=== PATIENT | male | born 1985 | race Caucasian/White ===

== ENCOUNTER 2017-10-21 15:17 | Emergency (ER) | payer SELFPAY ==
[2017-10-21 15:18] VITALS: BP 132/64; PULSE 98; RESP 18; TEMP 36.8; O2SAT 94; BMI 69.9
--- NOTE | 2017-10-21 17:11 | ED.VISSUMM ---
- ER Visit Summary Date of Service: 10/21/17 Chief Complaint: Respiratory illness for 2 weeks with productive green sputum History of Present Illness: The patient is a 32 M presents because of respiratory symptoms for 2 weeks with productive green sputum. He had asthma as a child. He is a non-smoker. He denies headache, rhinorrhea or postnasal drainage. He denies ear pain. He does complain of throat pain with coughing. His voice is hoarse. He denies any dyspnea on exertion or wheezing. He has no GI symptoms. Please read written note for complete detail. Physical Examination: No signs remarkable for an elevated blood pressure 132/64. His vital signs are otherwise within normal limits. He is not febrile nor is he hypoxic. Ears are normal. Nares patent with no discharge. Posterior pharynx erythema x-ray. Trachea midline with no stridor. Lungs are clear to auscultation with good movement of air. Heart is regular without murmur, gallop or rub. Test Results: None are indicated Emergency Department Course and Treatment: Was informed since he has a productive cough and has been ill for 2 weeks and be placed on antibiotic. He was given a prescription card to reduce his cost since he is a self-pay. Treatment Plan: Doxycycline 100 mg twice daily for 7 days Disposition: Discharged home with appropriate home-going instructions Impression: Purulent tracheitis/bronchitis This note was generated with [employer] dictation software. It may contain incorrect words, spelling, and punctuation that were not noted in review of the chart prior to signing ED Disposition - Plan for ED Patient: Disposition: Home or Assisted Living Chief Complaint: Cough Instructions: ED Upper Resp Infec Abx Tx Prescriptions: Doxycycline [Vibramycin] 100 mg PO BID #14 cap Referrals: Care Physician,No Primary [Primary Care Provider] - Joann Squires [NON-STAFF] - 3-5 Days if not improving
--- NOTE | 2017-10-21 17:15 | ED.DCSUM_ITS ---
- ER Visit Summary Date of Service: 10/21/17 Chief Complaint: Respiratory illness for 2 weeks with productive green sputum History of Present Illness: The patient is a 32 M presents because of respiratory symptoms for 2 weeks with productive green sputum. He had asthma as a child. He is a non-smoker. He denies headache, rhinorrhea or postnasal drainage. He denies ear pain. He does complain of throat pain with coughing. His voice is hoarse. He denies any dyspnea on exertion or wheezing. He has no GI symptoms. Please read written note for complete detail. Physical Examination: No signs remarkable for an elevated blood pressure 132/ 64. His vital signs are otherwise within normal limits. He is not febrile nor is he hypoxic. Ears are normal. Nares patent with no discharge. Posterior pharynx erythema x-ray. Trachea midline with no stridor. Lungs are clear to auscultation with good movement of air. Heart is regular without murmur, gallop or rub. Test Results: None are indicated Emergency Department Course and Treatment: Was informed since he has a productive cough and has been ill for 2 weeks and be placed on antibiotic. He was given a prescription card to reduce his cost since he is a self-pay. Treatment Plan: Doxycycline 100 mg twice daily for 7 days Disposition: Discharged home with appropriate home-going instructions Impression: Purulent tracheitis/bronchitis This note was generated with [employer] dictation software. It may contain incorrect words, spelling, and punctuation that were not noted in review of the chart prior to signing ED Disposition - Plan for ED Patient: Disposition: Home or Assisted Living Chief Complaint: Cough Instructions: ED Upper Resp Infec Abx Tx Prescriptions: Doxycycline [Vibramycin] 100 mg PO BID #14 cap Referrals: Care Physician,No Primary [Primary Care Provider] - Joann Squires [NON-STAFF] - 3-5 Days if not improving
--- NOTE | 2017-10-21 17:17 | ED.VISSUMM ---
- ER Visit Summary Date of Service: 10/21/17 Chief Complaint: [] History of Present Illness: The patient is a 32 M [] Physical Examination: [] Test Results: [] Emergency Department Course and Treatment: [] Treatment Plan: [] Disposition: [] Impression: [] This note was generated with [employer] dictation software. It may contain incorrect words, spelling, and punctuation that were not noted in review of the chart prior to signing ED Disposition - Plan for ED Patient: Disposition: Home or Assisted Living Chief Complaint: Cough Instructions: ED Upper Resp Infec Abx Tx Prescriptions: Doxycycline [Vibramycin] 100 mg PO BID #14 cap Referrals: Joann Squires [NON-STAFF] - 3-5 Days if not improving Care Physician,No Primary [Primary Care Provider] -
== END 2017-10-21 17:28 | disposition home or self-care (01) ==
PROVIDERS: Emergency Provider Emergency Medicine
DX: J40 Bronchitis, not specified as acute or chronic (principal); E66.9 Obesity, unspecified
CPT/HCPCS: 99282

== ENCOUNTER 2017-12-20 05:41 | Emergency (ER) | payer OTHER, SELFPAY ==
[2017-12-20 05:42] VITALS: BP 147/82; PULSE 86; RESP 18; TEMP 36.6; O2SAT 95; BMI 68.8
[2017-12-20 05:45] VITALS: O2SAT 96
--- NOTE | 2017-12-20 05:59 | ED.VISSUMM ---
- ER Visit Summary Date of Service: 12/20/17 Chief Complaint: Productive cough and cold symptoms History of Present Illness: The patient is a 32 M who presents with 1 week of gradually worsening cough and cold symptoms. Patient states these are the same symptoms he had in October when he required antibiotics to get better. He has been having a cough productive of green sputum. He has associated mild headache, nasal congestion, myalgias, and chest heaviness from the coughing. He denies fever, abdominal pain, nausea or vomiting, diarrhea or urinary symptoms. Patient does have history of asthma but does not currently have a rescue inhaler and has been using his girlfriends. No other medical problems. Physical Examination: Vital signs: afebrile, hemodynamically stable, no hypoxia on room air General: well nourished, well developed, in no distress Skin: warm, dry, no rash, no pallor HEENT: normocephalic and atraumatic; PERRL, EOMI, moist mucous membranes, no posterior oropharyngeal erythema, no tonsillar swelling or exudate, neck is supple with no lymphadenopathy or meningismus TMs show bilateral cerumen impaction but no tenderness to palpation of the mastoids or with movement of the external ear, voice is mildly hoarse, patient sounds congested, mild sinus tenderness to palpation Cardiovascular: regular rate and rhythm without murmurs, no peripheral edema, 2+ pulses all distal extremities Respiratory: No increased work of breathing, lungs are clear to auscultation bilaterally, no rales, rhonchi or wheezing Abdominal: Abdomen is soft, nontender with normoactive bowel sounds, no guarding or rebound, no masses MSK: Moves all extremities, no deformities, normal strength Neuro: Awake and alert, oriented ?4. No facial droop, sensation and motor function intact and symmetric Test Results: [] Emergency Department Course and Treatment: We discussed that patient's symptoms may be viral, but given his history of asthma and prior similar symptoms that lasted greater than 2 weeks before improving with antibiotics, patient will be given a wait and see prescription. He was on doxycycline less than 2 months ago, thus a different antibiotic was chosen in case there is any element of incomplete treatment with the doxycycline. Patient has a penicillin allergy. To cover rhinosinusitis and bacterial bronchitis, patient was prescribed Levaquin. He was also given a prescription for albuterol inhaler as he does not have one but does have asthma requiring rescue inhaler use. Patient had no evidence of wheezing or acute respiratory distress on exam today. He was urged to establish care with a primary care doctor. Patient agreed with this plan and was given the wait and see antibiotic prescription. Treatment Plan: [] Disposition: Discharge home Impression: Acute rhinosinusitis, acute bronchitis This note was generated with [employer] dictation software. It may contain incorrect words, spelling, and punctuation that were not noted in review of the chart prior to signing ED Disposition - Plan for ED Patient: Disposition: Home or Assisted Living Chief Complaint: Cold Sx Instructions: ED Upper Resp Infec Abx Tx, ED Bronchitis Asthmatic Prescriptions: Albuterol IH (ProAir) [Proair Hfa] 2 puff INHALATION Q4H PRN PRN #1 inhaler PRN Reason: Wheezing Levofloxacin [Levaquin] 750 mg PO DAILY #5 tab Referrals: Katrin Deutsch MD [STAFF PHYSICIAN] - 3-5 Days if not improving Care Physician,No Primary [Primary Care Provider] - Additional Instructions: As we discussed, please do not fill the antibiotic unless you are not having any improvement in 2-3 days. Continue [id number] medications for symptom relief. Please follow-up with a primary care physician to establish care for management of your asthma and other medical needs. The worsening of your condition or any new concerning symptoms, please return to the emergency department immediately for another evaluation.
--- NOTE | 2017-12-20 06:00 | ED.DEP ---
ED Disposition - Plan for ED Patient: Disposition: Home or Assisted Living Chief Complaint: Cold Sx Instructions: ED Bronchitis Asthmatic, ED Upper Resp Infec Abx Tx Prescriptions: Albuterol IH (ProAir) [Proair Hfa] 2 puff INHALATION Q4H PRN PRN #1 inhaler PRN Reason: Wheezing Levofloxacin [Levaquin] 750 mg PO DAILY #5 tab Referrals: Care Physician,No Primary [Primary Care Provider] - Katrin Deutsch MD [STAFF PHYSICIAN] - 3-5 Days if not improving Additional Instructions: As we discussed, please do not fill the antibiotic unless you are not having any improvement in 2-3 days. Continue [id number] medications for symptom relief. Please follow-up with a primary care physician to establish care for management of your asthma and other medical needs. The worsening of your condition or any new concerning symptoms, please return to the emergency department immediately for another evaluation.
[2017-12-20 06:16] VITALS: PULSE 66; RESP 16; O2SAT 98
== END 2017-12-20 06:16 | disposition home or self-care (01) ==
PROVIDERS: Emergency Provider Emergency Medicine
DX: J01.90 Acute sinusitis, unspecified (principal); J20.9 Acute bronchitis, unspecified; J45.909 Unspecified asthma, uncomplicated
CPT/HCPCS: 99282

== ENCOUNTER 2019-09-06 13:49 | Inpatient (IN) | payer OTHER, SELFPAY ==
[2019-09-06 13:49] VITALS: BP 205/110; PULSE 102; RESP 16; TEMP 36.1; O2SAT 99; BMI 72.5
--- NOTE | 2019-09-06 16:51 | RAD_ITS ---
STUDY: X-RAY CHEST REASON FOR EXAM: Male, 34 years old. BILATERAL LEG SWELLING, NO CHEST COMPLAINTS TECHNIQUE: Single AP portable view of the chest. COMPARISON: None. FINDINGS: The lungs are clear and expanded. There is no demonstrated pleural abnormality. Normal size heart. Normal mediastinum and dinh. Normal visualized pulmonary arteries. Normal visualized aortic arch and descending thoracic aorta. Normal visualized thoracic spine. Normal visualized ribs, clavicles, and shoulders. There is no demonstrated abnormality of the visualized soft tissue structures of the upper abdomen. RAD/Chest 1 View (Portable) IMPRESSION: Normal x-ray examination of the chest. Electronically Signed: Gasper Wu MD at 17:16 EST , Service support ,
--- NOTE | 2019-09-06 16:59 | ED.VIS.GEN ---
History of Present Illness Chief Complaint: Cellulitis Informant: Patient Onset: Weeks Context: Gradual Onset Timing: Continuous Narrative: Patient is a 34-year-old male with history of morbid obesity and asthma presenting with worsening redness and wounds of his right lower extremity. Patient states he had worsening swelling of both lower extremities for the past few weeks. He developed wounds and redness on his right lower leg that have been worsening over the past week or 2. He denies associated fever or chills. The wounds are draining. Patient was worried that he could get gangrene so he came to the emergency room. Patient denies any history of cellulitis. He states at one point he did use mupirocin for a wound on his left leg but that has resolved. Past Medical History - Allergies and Home Meds Allergies/Adverse Reactions: Allergies Penicillins Allergy (Verified 12/20/17 05:42) Hives Past Medical History: - - Asthma Surgical History: noncontributory Lives: Spouse/ Significant Other Smoking Status: Never smoker - Family History Maternal Family History: Reports: Cancer, Diabetes, Hypertension, Stroke, - - Leukemia Paternal Family History: Reports: Cancer, Diabetes, Hypertension, Stroke Review of Systems General: Denies: Chills, Fever, Sweats Eyes: Denies: Visual changes - bilaterally, Diplopia ENT: Denies: Rhinorrhea, Sore throat Cardiovascular: Denies: Chest pain, Palpitations Respiratory: Denies: Dyspnea, Cough, Dyspnea on exertion Gastrointestinal: Denies: Abdominal pain, Nausea, Vomiting, Diarrhea, Melena, Hematochezia Genitourinary: Denies: Dysuria, Hematuria, Frequency Musculoskeletal: Reports: Swelling - Bilateral lower extremities. Denies: Back pain, Extremity Pain Skin: Reports: Rash - Right lower extremity, Wounds - Right lower leg Neurological: Denies: Headache, Weakness, Numbness Physical Exam Vital Signs/Narrative: Vital Signs Temp Pulse Resp BP Pulse Ox 09/06/19 13:49 97 F L 102 H 16 205/110 H 99 Inital Vital Signs reviewed: Yes General: Well nourished, Well developed, Obese, No Acute Distress Head: Normocephalic, Atraumatic Eyes: Perrl, EOMI ENT: Moist mucous membranes, No rhinorrhea Neck: Supple, Nontender Cardiovascular: Regular rate, Regular rhythm, No murmurs Respiratory: No distress, CTA bilaterally, Chest nontender Abdomen: Soft, Nontender, Nondistended, Normal bowel sounds. Negative for: Tender, Guarding : - - Normal external exam Extremities: Tenderness, Edema - Patient has significant edema of his bilateral lower extremities with chronic changes likely from venous stasis. He has warmth and erythema diffusely of the right lower extremity extending from his upper thigh down to his feet. There are multiple draining ulcerated wounds of their his calf. The drainage is clear/yellow. There is no associated crepitus. Skin: Normal color, No rash, Rash - See above. Patient also has induration erythema of his pannus, patient seems to think this is chronic Neurological: Alert, Oriented x3, Cranial nerves II-XII grossly intact, Normal Strength, Normal Sensation Psychological: Normal affect, Normal Mood Diagnostic/Tx/Re-eval Clinical Impression(s) from Imaging Studies Chest X-Ray 09/06/19 16:51 IMPRESSION: Normal x-ray examination of the chest. Electronically Signed: Gasper Wu MD at 17:16 EST , Service support , Venous Duplex 09/06/19 17:22 IMPRESSION: Limited visualization of the calf veins due to obesity but no definitive evidence for deep venous thrombosis Electronically Signed: Emory Dooley MD at 18:05 EST , Service support , Laboratory Data 09/06/19 09/06/19 09/06/19 16:51 16:51 16:51 WBC 8.9 RBC 5.53 Hgb 13.2 Hct 46.6 MCV 84.3 MCH 23.9 L MCHC 28.3 L RDW Std Deviation 47.6 H RDW Coeff of Belen 15.6 H Plt Count 249 MPV 9.7 Immature Gran % (Auto) 2.000 H Neut % (Auto) 66.5 Lymph % (Auto) 20.7 Dane % (Auto) 8.1 Eos % (Auto) 2.0 Baso % (Auto) 0.7 Absolute Neuts (auto) 5.9 Absolute Lymphs (auto) 1.85 Nucleated RBC % 0 PT 13.5 INR 1.1 APTT 27.3 Sodium Potassium Chloride Carbon Dioxide Anion Gap BUN Creatinine Estim Creat Clear Calc Est GFR (MDRD) Af Amer Est GFR (MDRD) Non-Af BUN/Creatinine Ratio Glucose Lactic Acid 0.9 Calcium Total Bilirubin AST ALT Alkaline Phosphatase Total Protein Albumin Globulin Albumin/Globulin Ratio Urine Color Urine Clarity Urine pH Ur Specific [place] Urine Protein Urine Glucose (UA) Urine Ketones Urine Occult Blood Urine Nitrite Urine Bilirubin Urine Urobilinogen Ur Leukocyte Esterase Urine RBC Urine WBC Ur Squamous Epith Cells Urine Bacteria Urine Mucus 09/06/19 09/06/19 16:51 18:50 WBC RBC Hgb Hct MCV MCH MCHC RDW Std Deviation RDW Coeff of Belen Plt Count MPV Immature Gran % (Auto) Neut % (Auto) Lymph % (Auto) Dane % (Auto) Eos % (Auto) Baso % (Auto) Absolute Neuts (auto) Absolute Lymphs (auto) Nucleated RBC % PT INR APTT Sodium 141 Potassium 3.9 Chloride 104 Carbon Dioxide 37.0 H Anion Gap 0 L BUN 12 Creatinine 0.86 Estim Creat Clear Calc 139.36 Est GFR (MDRD) Af Amer 132 Est GFR (MDRD) Non-Af 109 BUN/Creatinine Ratio 13.9 Glucose 87 Lactic Acid Calcium 8.1 L Total Bilirubin 0.40 AST 40 H ALT 60 Alkaline Phosphatase 79 Total Protein 8.0 Albumin 3.1 L Globulin 4.9 H Albumin/Globulin Ratio 0.6 L Urine Color Yellow Urine Clarity Sl. Cloudy Urine pH 7.0 Ur Specific [place] 1.010 Urine Protein 15 H Urine Glucose (UA) Normal Urine Ketones Negative Urine Occult Blood Negative Urine Nitrite Negative Urine Bilirubin Negative Urine Urobilinogen Normal Ur Leukocyte Esterase Negative Urine RBC 0 SEEN Urine WBC 0-5 SEEN Ur Squamous Epith Cells 0-5 SEEN Urine Bacteria 0 SEEN Urine Mucus 0 SEEN - Medical Decision Making Patient is evaluated for worsening redness and swelling of his lower extremities, right worse than left. Patient is exam is concerning for significant cellulitis of the right lower extremity as well as bilateral lymphedema. Patient also has open wounds/ulcerations on his left lower leg. Patient is hemodynamically stable in the emergency room. Sepsis work-up is largely negative. He has a normal white blood cell count and normal lactate. Patient will be admitted for IV antibiotics and is given first dose of Ancef and Vanco in the emergency room. He is stable for the general medical floor at time of disposition. He is agreeable with this plan. Patient does not have associated crepitus and I do not suspect necrotizing fasciitis. I did obtain lower extremity duplex because of his edema which was technically difficult secondary to his large body habitus but did not show any obvious thrombosis. Discussed with hospitalist, Dr. Dimas, who is agreeable with this plan. ED Disposition - Plan for ED Patient: Disposition: Acute [facility] Diagnosis: Cellulitis
[2019-09-06 17:21] LABS: Absolute Lymphocyte Count 1.85 X10^3/uL (0.83-4.51); Absolute Neutrophil Count 5.9 X10^3/uL (2.0-7.7); Basophil# 0.06 X10^3/uL; Basophil% 0.7 % (0-1); Eosinophil# 0.18 X10^3/uL; Hematocrit 46.6 % (40-54); Hemoglobin 13.2 g/dL (13.0-16.5); Lymphocyte # 1.85 X10^3/ul (4.0); Lymphocyte % 20.7 % (19-41); Mean Corp Hgb Conc 28.3 g/dL (32-36); Mean Corpuscular Hgb 23.9 pg (27.0-32.0); Mean Corpuscular Volume 84.3 fL (80-94); Mean Platelet Vol. 9.7 fl (6.2-12.0); Monocyte# 0.72 X10^3/uL; Monocyte% 8.1 % (0-10); NRBC Flagged by Analyzer 0 % (0-5); Neutrophil # 5.94 X10^3/uL (2.7-7.7); Neutrophil % 66.5 % (47-70); Platelet Count 249 K/mm3 (150-450); RBC Distribution Width CV 15.6 % (11.6-14.6); RBC Distribution Width SD 47.6 fl (35.1-43.9); Red Blood Count 5.53 M/mm3 (4.6-6.2); White Blood Count 8.9 K/mm3 (4.4-11.0)
--- NOTE | 2019-09-06 17:22 | US_ITS ---
STUDY: VENOUS DOPPLER ULTRASOUND - BILATERAL LOWER EXTREMITIES REASON FOR EXAM: Male, 34 years old. EDEMA WET GANGRENE TECHNIQUE: Ultrasound evaluation of the deep vein system to include rodriguez-scale imaging and compression was performed. Rodriguez-scale imaging and Doppler sonographic evaluation, including duplex spectral analysis and qualitative color flow sonography, was performed. COMPARISON: None. FINDINGS: Limited visualization of the calf veins due to patient obesity. RIGHT LEG Common Femoral Vein: Normal compression, spontaneity and augmentation. Normal color Doppler. Common Femoral Vein/Greater Saphenous Junction: Normal compression, spontaneity and augmentation. Normal color Doppler. Deep Femoral Vein: Normal compression, spontaneity and augmentation. Normal color Doppler. Femoral Proximal: Normal compression, spontaneity and augmentation. Normal color Doppler. Femoral Middle: Normal compression, spontaneity and augmentation. Normal color Doppler. Femoral Distal: Normal compression, spontaneity and augmentation. Normal color Doppler. Popliteal Vein: Normal compression, spontaneity and augmentation. Normal color Doppler. Posterior Tibial Vein: Normal compression, spontaneity and augmentation. Normal color Doppler. Peroneal Vein: Normal compression, spontaneity and augmentation. Normal color Doppler. LEFT LEG Common Femoral Vein: Normal compression, spontaneity and augmentation. Normal color Doppler. Common Femoral Vein/Greater Saphenous Junction: Normal compression, spontaneity and augmentation. Normal color Doppler. Deep Femoral Vein: Normal compression, spontaneity and augmentation. Normal color Doppler. Femoral Proximal: Normal compression, spontaneity and augmentation. Normal color Doppler. Femoral Middle: Normal compression, spontaneity and augmentation. Normal color Doppler. Femoral Distal: Normal compression, spontaneity and augmentation. Normal color Doppler. Popliteal Vein: Normal compression, spontaneity and augmentation. Normal color Doppler. Posterior Tibial Vein: Normal compression, spontaneity and augmentation. Normal color Doppler. Peroneal Vein: Normal compression, spontaneity and augmentation. Normal color Doppler. US/Venous Duplex Imag/Blaise Extrem IMPRESSION: Limited visualization of the calf veins due to obesity but no definitive evidence for deep venous thrombosis Electronically Signed: Emory Dooley MD at 18:05 EST , Service support ,
[2019-09-06 17:24] VITALS: BMI 72.6
[2019-09-06 17:24] LABS: International Normalized Ratio 1.1; Prothrombin Time (Protime)PT. 13.5 SECONDS (11.7-14.9)
[2019-09-06 17:25] LABS: Partial Thromboplast Time 27.3 Seconds (24.1-36.2)
[2019-09-06 17:31] VITALS: PULSE 85; RESP 18; O2SAT 93
[2019-09-06] MEDS: 0.9% Normal Saline 1,000 ML 999 ML IV (17:34)
[2019-09-06 17:36] LABS: Lactic Acid 0.9 mmol/L (0.4-1.9)
[2019-09-06 17:59] LABS: ALB/GLOB Ratio 0.6 RATIO (0.9-2.4); AST(SGOT) 40 U/L (15-37); Alanine Aminotransfer ALT/SGPT 60 U/L (16-61); Albumin, Serum 3.1 g/dL (3.2-5.0); Alkaline Phosphatase 79 U/L (45-117); Anion Gap 0 (5-15); BUN 12 mg/dL (7-18); BUN/Creat Ratio 13.9 RATIO (10-20); Calcium,Total 8.1 mg/dL (8.5-10.1); Chloride 104 mmol/L (98-107); Creatinine, Serum 0.86 mg/dL (0.70-1.30); EST Glomerular Filtration Rate 109 mL/min (>60); Est Glom Filt Rate - Afr Amer 132 mL/min (>60); Estimated Creatinine Clearance 139.36 ml/min; Globulin 4.9 g/dL (2.2-4.2); Glucose 87 mg/dL (74-106); Potassium 3.9 mmol/L (3.5-5.1); Sodium Level 141 mmol/L (136-145)
[2019-09-06 18:54] LABS: Bacteria 0 SEEN /hpf (None Seen); Mucous, Urine 0 SEEN /hpf (<or=2+); Red Blood Cells-Urine 0 SEEN /hpf (0-5)
[2019-09-06 18:55] LABS: Color, Urine Yellow (Yellow); Glucose, Dipstick Normal (Normal); Ketone-Dipstick Negative (Negative); Leukocyte Esterase-Dipstick Negative /ul (Negative); Nitrite-Dipstick Negative (Negative); Occult Blood-Urine Negative /ul (Negative); Protein-Dipstick 15 mg/dl (Negative); Urine Bilirubin Dipstick Negative (Negative); Urine Clarity Sl. Cloudy (Clear); Urine Urobilinogen Normal (Normal)
[2019-09-06 19:06] LABS: Squamous Epithelial Cells - UA 0-5 SEEN /hpf (0-5); White Blood Cells 0-5 SEEN /hpf (0-5)
--- NOTE | 2019-09-06 19:47 | PCM.HP.STD ---
Problem List (1) Cellulitis Status: Acute History of Present Illness Date of Admission: 09/06/19 Chief Complaint: redness of right leg The patient is a 34 year old M with a significant history of morbid obesity who presented to emergency department with redness of his right leg. His symptoms started about a month ago with swelling of both legs. However he noticed about 2 weeks ago his right leg developed ulcers and it began to drain. He reports tenderness around the ulcers of his right leg. His left leg has stayed stable whiles his right leg continues to swell. He denies any fever or chills. At the emergency department ultrasound of his legs was unremarkable. Past Medical History Medical History: Medical History (Last Updated 09/06/19 @ 20:37 by Wing Erickson MD) Morbid obesity due to excess calories E66.01 Allergies Penicillins Allergy (Verified 12/20/17 05:42) Hives Home Medications: Ambulatory Orders Medication Instructions Recorded NK 09/06/19 Surgical History: no surgical history Lives: Spouse/ Significant Other Smoking Status: Never smoker Tobacco Use: Non-smoker, Secondhand - *Family History Maternal History Items: Cancer, Diabetes, Hypertension, Stroke, - - Leukemia Paternal History Items: Cancer, Diabetes, Hypertension, Stroke Review of Systems Constitutional: Denies: Chills, Fever, Weight Change HEENT: Denies: Head Aches, Sinus Congestion, Sinus Drainage Cardiovascular: Reports: Edema - Reports bilateral lower legs with right leg worse than left leg.. Denies: Chest Pain, Palpitations Respiratory: Denies: Cough, Shortness of breath at rest, Sputum production Gastrointestinal: Denies: Abdominal Pain, Nausea, Vomiting Genitourinary: Denies: Dysuria Musculoskeletal: Denies: Joint Pain, Joint Tenderness Skin: Reports: Wounds - Ulcerations of right leg, - - Erythema of right leg. Denies: Rash Neurological: Denies: Numbness, Tingling, Focal weakness Psychiatric: Denies: Anxiety, Depression, Homicidal Ideations, Suicidal Ideations Hematologic/ Lymphatic: Denies: Easy Bruising, Easy Bleeding VTE Information - Inpt Only VTE Present on Admission: No VTE Mechan Device Prophylaxis: None VTE Pharm Prophylaxis ordered?: Yes Patient Problems: Active and Suspected Problems (Last Updated 09/06/19 @ 20:37 by Wing Erickson MD) Cellulitis (Acute) - Physical Exam Vitals/I&O's: Vital Signs Temp Pulse Resp BP Pulse Ox 97 F L 85 18 205/110 H 93 09/06/19 13:49 09/06/19 17:31 09/06/19 17:31 09/06/19 13:49 09/06/19 17:31 Oxygen Delivery Method Room Air Weight: 249.476 kg Body Mass Index (BMI) 72.5 General: Alert, Oriented x3, Cooperative, - - Morbidly obese HEENT: Atraumatic, EOMI, Normocephalic Neck: Supple, Trachea Midline Lungs: Clear to auscultation, Normal air movement, No rhonchi, No wheeze, No rales, Diminished Cardiovascular: Regular rate, Normal S1, Normal S2, No murmurs Abdomen: Bowel Sounds Present, Soft, Non Tender Extremities: Capillary Refill Less than 3 Seconds, Edema - Right leg Skin: No rashes, No breakdown, - - Ulceration of right leg; tenderness around ulcer; and erythema; Musculoskeletal: Tenderness - Ulcers of right leg Neurological: Cranial nerves II-XII grossly intact Psych/Mental Status: Normal Affect, Appropriate Laboratory Results 09/06/19 16:51: Lactic Acid 0.9 09/06/19 16:51: WBC 8.9, RBC 5.53, Hgb 13.2, Hct 46.6, MCV 84.3, MCH 23.9 L, MCHC 28.3 L, RDW Std Deviation 47.6 H, RDW Coeff of [place] 15.6 H, Plt Count 249, MPV 9.7, Immature Gran % (Auto) 2.000 H, Neut % (Auto) 66.5, Lymph % (Auto) 20.7, [place] % (Auto) 8.1, Eos % (Auto) 2.0, Baso % (Auto) 0.7, Absolute Neuts (auto) 5.9, Absolute Lymphs (auto) 1.85, Nucleated RBC % 0 09/06/19 16:51: PT 13.5, INR 1.1, APTT 27.3 09/06/19 16:51: Sodium 141, Potassium 3.9, Chloride 104, Carbon Dioxide 37.0 H, Anion Gap 0 L, BUN 12, Creatinine 0.86, Estim Creat Clear Calc 139.36, Est GFR (MDRD) Af Amer 132, Est GFR (MDRD) Non-Af 109, BUN/Creatinine Ratio 13.9, Glucose 87, Calcium 8.1 L, Total Bilirubin 0.40, AST 40 H, ALT 60, Alkaline Phosphatase 79, Total Protein 8.0, Albumin 3.1 L, Globulin 4.9 H, Albumin/Globulin Ratio 0.6 L 09/06/19 18:50: Urine Color Yellow, Urine Clarity Sl. Cloudy, Urine pH 7.0, Ur Specific [place] 1.010, Urine Protein 15 H, Urine Glucose (UA) Normal, Urine Ketones Negative, Urine Occult Blood Negative, Urine Nitrite Negative, Urine Bilirubin Negative, Urine Urobilinogen Normal, Ur Leukocyte Esterase Negative, Urine RBC 0 SEEN, Urine WBC 0-5 SEEN, Ur Squamous Epith Cells 0-5 SEEN, Urine Bacteria 0 SEEN, Urine Mucus 0 SEEN Current Medications Vancomycin HCl 2,000 mg/ (Dextrose) 290 mls @ 250 mls/hr IV X1 ONE Stop: 09/06/19 20:45 Cefazolin Sodium () 1 gm in 50 mls @ 100 mls/hr IV X1 ONE Stop: 09/06/19 19:58 Assessment/Plan All Active Problems (Last Updated 09/06/19 @ 20:37 by Wing Erickson MD) Cellulitis (Acute) The patient is a 34 year old M with a significant history of morbid obesity who presented to emergency department with redness of his right leg; ulcers of his right leg and swelling of same extremity consistent with cellulitis. Cellulitis of right leg Doppler ultrasound emergency department was unremarkable. Vancomycin and Ancef ordered at the ED. We will continue Ancef 2g every 8 hours. Trend CBC and BMP. Superobesity Counseled. DVT prophylaxis Subcutaneous Lovenox adjusted for weight Code Visit Inpatient E&M: 26519 Init Hosp L2
[2019-09-06 19:52] VITALS: PULSE 85; RESP 15; O2SAT 93
[2019-09-06 19:53] VITALS: BMI 72.5
--- NOTE | 2019-09-06 19:54 | ED.RN ---
PHARMACY CALLED . PT OKAY FOR FLOOR AND NEED ANTIBIOTICS. PER TECH PHARMACIST IS GETTING STARTED NOW.
[2019-09-06 20:47] VITALS: BP 133/92; PULSE 85; RESP 18; TEMP 36.6; O2SAT 94
[2019-09-06] MEDS: Cefazolin 1 GM/50 ML BAG IV (20:58)
[2019-09-06] MEDS: Enoxaparin 40 MG/0.4 ML Syringe SC (22:46)
[2019-09-07 02:59] VITALS: BP 129/65; PULSE 91; RESP 20; TEMP 36.6; O2SAT 94
[2019-09-07] MEDS: Cefazolin 1 GM/50 ML BAG IV ×2 (03:04→13:46)
[2019-09-07 06:06] LABS: Absolute Lymphocyte Count 1.22 X10^3/uL (0.83-4.51); Absolute Neutrophil Count 5.5 X10^3/uL (2.0-7.7); Basophil# 0.04 X10^3/uL; Basophil% 0.5 % (0-1); Eosinophil# 0.18 X10^3/uL; Eosinophils% 2.3 % (0-5); Hemoglobin 12.6 g/dL (13.0-16.5); Lymphocyte # 1.22 X10^3/ul (4.0); Lymphocyte % 15.9 % (19-41); Mean Corpuscular Hgb 23.4 pg (27.0-32.0); Mean Corpuscular Volume 83.5 fL (80-94); Mean Platelet Vol. 9.6 fl (6.2-12.0); Monocyte% 7.8 % (0-10); NRBC Flagged by Analyzer 0 % (0-5); Neutrophil # 5.49 X10^3/uL (2.7-7.7); Neutrophil % 71.7 % (47-70); Platelet Count 238 K/mm3 (150-450); RBC Distribution Width CV 15.9 % (11.6-14.6); RBC Distribution Width SD 47.9 fl (35.1-43.9); Red Blood Count 5.39 M/mm3 (4.6-6.2); White Blood Count 7.7 K/mm3 (4.4-11.0)
[2019-09-07 06:24] LABS: Anion Gap 1 (5-15); BUN 10 mg/dL (7-18); BUN/Creat Ratio 14.3 RATIO (10-20); Chloride 104 mmol/L (98-107); EST Glomerular Filtration Rate 139 mL/min (>60); Est Glom Filt Rate - Afr Amer 168 mL/min (>60); Estimated Creatinine Clearance 171.21 ml/min; Glucose 109 mg/dL (74-106); Potassium 4.1 mmol/L (3.5-5.1); Sodium Level 139 mmol/L (136-145)
[2019-09-07 09:00] VITALS: BP 124/66; PULSE 81; RESP 18; TEMP 36.3; O2SAT 93
[2019-09-07] MEDS: Enoxaparin 40 MG/0.4 ML Syringe SC ×2 (09:18→22:18)
--- NOTE | 2019-09-07 11:00 | CASEMGMT ---
RN MELISSA Face to Face with patient for initial transition planning/care coordination assessment. RN CM introduced self and role at [facility]. Patient lying in bed, alert and oriented. Patient willing to participate in assessment and is able to answer all questions appropriately. Care providers, pharmacy, and demographics verified. Patient wishes to discharge home, denies need for home health at this time. Patient states he has no further needs or concerns at this time. CM to follow for discharge planning needs that may arise. PCP: [facility] Specialists: None Preferred Pharmacy: [facility] Insurance: MMO Prescription Benefit: yes Living Will/HPOA: none LNOK: Mother, Girlfriend Living Arrangements: Patient lives with girlfriend in first floor apartment. Patient is independent at home. Transportation: self, family DME/HHC: Patient has nebulizer, denies further needs. No previous HHC Disposition Plan: Patient to discharge home with family support and follow-up plans in place. Arina HURTADO, RN, CM
[2019-09-07 11:30] VITALS: O2SAT 93
--- NOTE | 2019-09-07 13:32 | NURSING ---
wound photo: right anterior lower leg
--- NOTE | 2019-09-07 13:34 | NURSING ---
wound photo: right posterior lower leg
[2019-09-07] MEDS: 0.9% Saline Lock 10 ML Syringe IV ×3 (13:46→22:20)
[2019-09-07 14:47] LABS: M R Staph aureus DNA By PCR Negative (Negative); Probe Check PASS; Specimen Processing Control PASS; Staph aureus DNA By PCR POSITIVE (Negative)
--- NOTE | 2019-09-07 14:50 | CHAPLAIN ---
Type of Pastoral Visit _x__ Initial Visit ___ Follow-up Visit ___ On-call Visit ___ General Patient Visit ___ Spiritual Assessment ___ Family Conference ___ Bereavement ___ Rapid Response ___ Code Blue ___ Other (describe below) Pastoral Care Referral From _x__ Patient ___ Family ___ Nurse ___ Physician ___ Christian Science Practitioner ___ Electrician Substation ___ Other (describe below) Sacrament/Intervention _x__ Active listening ___ Anointing ___ Sikhism ___ Bereavement ___ Communion ___ Shira exploration ___ _x__ Life review _x__ Prayer ___ Reconciliation ___ Sacrament of Sick ___ Supportive presence ___ Wedding ___ Other (describe below) Pastoral Comments
[2019-09-07 15:00] VITALS: BP 126/73; PULSE 85; RESP 18; TEMP 36.8; O2SAT 93
--- NOTE | 2019-09-07 16:43 | PN_ITS ---
Patient Problems: Active and Suspected Problems (Last Updated 09/06/19 @ 20:37 by Wing Erickson MD) Cellulitis (Acute) Subjective: Patient was seen and examined today, he remains afebrile, his white blood cell count remains normal. I had a discussion with pharmacy about his Ancef dosage, his Ancef dosage will be increased to 2 g every 8 hours. - Physical Exam Vitals/I&O's: Vital Signs Temp Pulse Resp BP Pulse Ox 98.2 F 85 18 126/73 H 93 09/07/19 15:00 09/07/19 15:00 09/07/19 15:00 09/07/19 15:00 09/07/19 15:00 Oxygen Flow Rate (L/min) 2 Oxygen Delivery Method Room Air Weight: 249.476 kg Body Mass Index (BMI) 72.5 Intake and Output for Last 24 Hours 09/05/19 09/06/19 09/07/19 23:59 23:59 23:59 Intake Total 1830 / 1830 500 / 500 Balance 1830 / 1830 500 / 500 General: Alert, Oriented x3, Cooperative, No apparent distress, Well developed HEENT: Atraumatic, PERRLA, EOMI, Normocephalic Oral: Moist Mucosa Neck: Supple, Trachea Midline, Thyroid Normal Size and Texture Lungs: Clear to auscultation, Normal air movement, No rhonchi, No wheeze, No rales Cardiovascular: Regular rate, Regular Rhythm, Normal S1, Normal S2, No murmurs Abdomen: Bowel Sounds Present, Soft, Non Tender, Non-Distended, Obese Extremities: No clubbing, No cyanosis, Capillary Refill Less than 3 Seconds, Edema - Generalized edema is noted over the patient's lower legs bilaterally Skin: No rashes, Ulcer/ Wound - There is breakdown noted over the right anterior lower leg, there are stasis dermatitis changes of both lower legs noted Musculoskeletal: No Tenderness to Palpation of Joints or Extremities Neurological: Cranial nerves II-XII grossly intact, Neuro grossly intact, Sensory exam intact to light touch and pain, Coordination normal Psych/Mental Status: Normal Affect, Appropriate, Alert and oriented to time, place, person, mood and affect Microbiology Past 72 Hours 09/07/19 13:15 Wound - Leg, Right Gram Stain - Final Laboratory Results 09/06/19 16:51: Lactic Acid 0.9 09/06/19 16:51: WBC 8.9, RBC 5.53, Hgb 13.2, Hct 46.6, MCV 84.3, MCH 23.9 L, MCHC 28.3 L, RDW Std Deviation 47.6 H, RDW Coeff of [place] 15.6 H, Plt Count 249, MPV 9.7, Immature Gran % (Auto) 2.000 H, Neut % (Auto) 66.5, Lymph % (Auto) 20.7, [place] % (Auto) 8.1, Eos % (Auto) 2.0, Baso % (Auto) 0.7, Absolute Neuts (auto) 5.9, Absolute Lymphs (auto) 1.85, Nucleated RBC % 0 09/06/19 16:51: PT 13.5, INR 1.1, APTT 27.3 09/06/19 16:51: Sodium 141, Potassium 3.9, Chloride 104, Carbon Dioxide 37.0 H, Anion Gap 0 L, BUN 12, Creatinine 0.86, Estim Creat Clear Calc 139.36, Est GFR (MDRD) Af Amer 132, Est GFR (MDRD) Non-Af 109, BUN/Creatinine Ratio 13.9, Glucose 87, Calcium 8.1 L, Total Bilirubin 0.40, AST 40 H, ALT 60, Alkaline Phosphatase 79, Total Protein 8.0, Albumin 3.1 L, Globulin 4.9 H, Albumin/Globulin Ratio 0.6 L 09/06/19 18:50: Urine Color Yellow, Urine Clarity Sl. Cloudy, Urine pH 7.0, Ur Specific [place] 1.010, Urine Protein 15 H, Urine Glucose (UA) Normal, Urine Ketones Negative, Urine Occult Blood Negative, Urine Nitrite Negative, Urine Bilirubin Negative, Urine Urobilinogen Normal, Ur Leukocyte Esterase Negative, Urine RBC 0 SEEN, Urine WBC 0-5 SEEN, Ur Squamous Epith Cells 0-5 SEEN, Urine Bacteria 0 SEEN, Urine Mucus 0 SEEN 09/07/19 05:30: WBC 7.7, RBC 5.39, Hgb 12.6 L, Hct 45.0, MCV 83.5, MCH 23.4 L, MCHC 28.0 L, RDW Std Deviation 47.9 H, RDW Coeff of [place] 15.9 H, Plt Count 238, MPV 9.6, Immature Gran % (Auto) 1.800 H, Neut % (Auto) 71.7 H, Lymph % (Auto) 15.9 L, [place] % (Auto) 7.8, Eos % (Auto) 2.3, Baso % (Auto) 0.5, Absolute Neuts (auto) 5.5, Absolute Lymphs (auto) 1.22, Nucleated RBC % 0 09/07/19 05:30: Sodium 139, Potassium 4.1, Chloride 104, Carbon Dioxide 34.0 H, Anion Gap 1 L, BUN 10, Creatinine 0.70, Estim Creat Clear Calc 171.21, Est GFR (MDRD) Af Amer 168, Est GFR (MDRD) Non-Af 139, BUN/Creatinine Ratio 14.3, Glucose 109 H, Calcium 8.0 L 09/07/19 13:15: S.aureus Protein A PCR POSITIVE H, MRSA (PCR) Negative Current Medications Acetaminophen (Tylenol) 650 mg PO Q6H PRN PRN PRN Reason: Pain Score 1-10/Temp > 100.7 F Enoxaparin Sodium (Lovenox) 40 mg SC BID [facility] Last Admin: 09/07/19 09:18 Dose: 40 mg Documented by: Glucagon () 1 mg IM .X1 PRN PRN Reason: Hypoglycemia Dextrose (Dextrose 10%-Water) 250 mls @ 999 mls/hr IV .Q16M PRN; Protocol PRN Reason: HYPOGLYCEMIA Sodium Chloride () 250 mls @ 15 mls/hr IV .[id number] PRN PRN Reason: Saline Flush Last Infusion: 09/07/19 14:16 Dose: 15 mls/hr Documented by: Sodium Chloride () 250 mls @ 15 mls/hr IV .[id number] PRN PRN Reason: Additional IVPB Infusion Cefazolin Sodium 2 gm/ Sodium (Chloride) 110 mls @ 150 mls/hr IV Q8 [facility] Nutritional Formula (Lactose Free) (Ensure Enlive) 120 ml PO 4X/DAY [facility] Last Admin: 09/07/19 13:39 Dose: 120 ml Documented by: Ondansetron HCl (Zofran) 4 mg IV Q8H PRN PRN PRN Reason: NAUSEA/VOMITING Senna/Docusate Sodium (Senokot-S, Reny-Colace) 2 tablet PO BID PRN PRN PRN Reason: Constipation Sodium Chloride () 10 - 40 ml IV UD PRN PRN Reason: SALINE FLUSH Last Admin: 09/07/19 13:46 Dose: 10 ml Documented by: Medical Necessity - Tobacco Use Smoking Status: Never smoker Tobacco Use: Non-smoker, Secondhand Assessment/Plan All Active Problems (Last Updated 09/06/19 @ 20:37 by Wing Erickson MD) Cellulitis (Acute) #1 cellulitis of the lower legs-patient will remain on Ancef at this time #2 bilateral lower leg edema-chronic in nature-I will place the patient on IV Lasix to see if I can improve his lower leg edema. #3 morbid obesity-this makes treatment complicated and less successful Code Visit Inpatient E&M: 44983 Subs Hosp L2
[2019-09-07] MEDS: Furosemide 20 MG/2 ML VIAL IV ×2 (17:55→22:19)
[2019-09-07] MEDS: Cefazolin 2 GM in 0.9% Normal Saline 100 ML IV (22:30)
[2019-09-07 23:59] VITALS: BP 157/99; PULSE 89; RESP 16; TEMP 36.9; O2SAT 94
[2019-09-08] VITALS (9 sets, daily range): BP systolic 118–159; BP diastolic 62–89; PULSE 76–96; RESP 6–20; TEMP 36.6–37.1; O2SAT 61–94
[2019-09-08] MEDS: Cefazolin 2 GM in 0.9% Normal Saline 100 ML IV ×3 (05:22→21:18)
[2019-09-08] MEDS: Furosemide 20 MG/2 ML VIAL IV ×3 (05:23→21:15)
[2019-09-08] MEDS: 0.9% Saline Lock 10 ML Syringe IV ×4 (05:24→22:42)
--- NOTE | 2019-09-08 08:24 | NURSING ---
pt resting in bed, eyes closed. requesting to wait until breakfast for medications and to wait for drsg change until awake for the day.
[2019-09-08] MEDS: Enoxaparin 40 MG/0.4 ML Syringe SC ×2 (09:29→21:20)
[2019-09-08] MEDS: Nystatin Powder 15gm Bottle 1 APPLIC TOPICAL ×2 (09:44→21:21)
--- NOTE | 2019-09-08 18:23 | PN_ITS ---
Patient Problems: Active and Suspected Problems (Last Updated 09/06/19 @ 20:37 by Wing Erickson MD) Cellulitis (Acute) Subjective: Patient was seen and examined today, he remains afebrile, I have continued him on IV Lasix for now. - Physical Exam Vitals/I&O's: Vital Signs Temp Pulse Resp BP Pulse Ox 98.7 F 93 18 133/72 H 92 09/08/19 14:10 09/08/19 14:10 09/08/19 14:10 09/08/19 14:10 09/08/19 14:10 Oxygen Flow Rate (L/min) 3 Oxygen Delivery Method Room Air Weight: 249.476 kg Body Mass Index (BMI) 72.5 Intake and Output for Last 24 Hours 09/06/19 09/07/19 09/08/19 23:59 23:59 23:59 Intake Total 1830 / 1830 663.5 / 663.5 1620 / 1620 Balance 1830 / 1830 663.5 / 663.5 1620 / 1620 General: Alert, Oriented x3, Cooperative, No apparent distress, Well developed, Well nourished HEENT: Atraumatic, PERRLA, EOMI, Normocephalic Oral: Moist Mucosa Neck: Supple, No JVD, Negative Carotid Bruits, Trachea Midline, Thyroid Normal Size and Texture Lungs: Clear to auscultation, Normal air movement, No rhonchi, No wheeze, No rales Cardiovascular: Regular rate, No murmurs Abdomen: Bowel Sounds Present, Soft, Non Tender, Obese Extremities: No clubbing, No cyanosis, Capillary Refill Less than 3 Seconds, Edema - Generalized edema is noted over the patient's lower legs Skin: No rashes, Excoriated - . His skin areas are noted to be present over the patient's right lower leg as described previously Musculoskeletal: No Tenderness to Palpation of Joints or Extremities Neurological: Cranial nerves II-XII grossly intact, Neuro grossly intact, Sensory exam intact to light touch and pain Psych/Mental Status: Normal Affect, Appropriate, Alert and oriented to time, place, person, mood and affect Microbiology Past 72 Hours 09/07/19 13:15 Wound - Leg, Right Gram Stain - Final 09/07/19 13:15 Wound - Leg, Right Wound Culture - Preliminary Staphylococcus aureus Current Medications Acetaminophen (Tylenol) 650 mg PO Q6H PRN PRN PRN Reason: Pain Score 1-10/Temp > 100.7 F Enoxaparin Sodium (Lovenox) 40 mg SC BID [facility] Last Admin: 09/08/19 09:29 Dose: 40 mg Documented by: Furosemide (Lasix) 20 mg IV Q8 [facility] Last Admin: 09/08/19 15:33 Dose: 20 mg Documented by: Glucagon () 1 mg IM .X1 PRN PRN Reason: Hypoglycemia Sodium Chloride () 250 mls @ 15 mls/hr IV .[id number] PRN PRN Reason: Saline Flush Last Infusion: 09/08/19 16:19 Dose: 15 mls/hr Documented by: Sodium Chloride () 250 mls @ 15 mls/hr IV .[id number] PRN PRN Reason: Additional IVPB Infusion Cefazolin Sodium 2 gm/ Sodium (Chloride) 110 mls @ 150 mls/hr IV Q8 [facility] Last Infusion: 09/08/19 16:18 Dose: Infused Documented by: Nystatin (Mycostatin Powder) 1 applic TOPICAL BID [facility]; Protocol Last Admin: 09/08/19 09:44 Dose: 1 applicatio Documented by: Ondansetron HCl (Zofran) 4 mg IV Q8H PRN PRN PRN Reason: NAUSEA/VOMITING Potassium Chloride (K-Dur) 20 meq PO BIDCM [facility] Last Admin: 09/08/19 18:18 Dose: 20 meq Documented by: Senna/Docusate Sodium (Senokot-S, Reny-Colace) 2 tablet PO BID PRN PRN PRN Reason: Constipation Sodium Chloride () 10 - 40 ml IV UD PRN PRN Reason: SALINE FLUSH Last Admin: 09/08/19 15:33 Dose: 10 ml Documented by: Medical Necessity - Tobacco Use Smoking Status: Never smoker Tobacco Use: Non-smoker, Secondhand Assessment/Plan All Active Problems (Last Updated 09/06/19 @ 20:37 by Wing Erickson MD) Cellulitis (Acute) #1 cellulitis of the lower legs-patient will remain on Ancef at this time #2 bilateral lower leg edema-chronic in nature-patient will remain on IV Lasix, BMP will be performed tomorrow #3 morbid obesity-this makes treatment complicated and less successful Code Visit Inpatient E&M: 16940 Subs Hosp L2
[2019-09-08 19:55] LABS: Anion Gap 2 (5-15); BUN 12 mg/dL (7-18); BUN/Creat Ratio 12.2 RATIO (10-20); Calcium,Total 9.1 mg/dL (8.5-10.1); Chloride 101 mmol/L (98-107); Creatinine, Serum 0.98 mg/dL (0.70-1.30); EST Glomerular Filtration Rate 94 mL/min (>60); Est Glom Filt Rate - Afr Amer 113 mL/min (>60); Glucose 120 mg/dL (74-106); Potassium 3.9 mmol/L (3.5-5.1); Sodium Level 138 mmol/L (136-145)
[2019-09-09 04:15] VITALS: BP 130/81; PULSE 94; RESP 18; TEMP 36.5; O2SAT 94
[2019-09-09] MEDS: Cefazolin 2 GM in 0.9% Normal Saline 100 ML IV (05:53)
[2019-09-09] MEDS: 0.9% Saline Lock 10 ML Syringe IV (05:54)
[2019-09-09] MEDS: Furosemide 20 MG/2 ML VIAL IV (05:54)
[2019-09-09 07:42] VITALS: O2SAT 94
[2019-09-09 09:30] VITALS: BP 128/61; PULSE 96; RESP 18; TEMP 36.3; O2SAT 94
--- NOTE | 2019-09-09 13:04 | DCINST_ITS ---
- Discharge Diagnoses Current Active Problems: Current Active and Chronic Problems (Last Updated 09/06/19 @ 20:37 by Wing Erickson MD) Cellulitis (Acute) You will use the following diet at home:: No restrictions Your food should be the consistency of: Regular Your liquids should be the consistency of: Regular/Thin Discharge Activity: Return to Normal Activity Return to work on:: 09/10/19 Weight Bearing Status: Full weight bearing Allergies/Adverse Reactions: Allergies Penicillins Allergy (Verified 12/20/17 05:42) Hives Medications to take at Discharge Cefadroxil [Duricef] 1,000 mg PO BID #30 cap 09/09/19 Furosemide [Lasix] 40 mg PO DAILY #30 tab 09/09/19 Nystatin Powder [Mycostatin Powder] 1 applic TOPICAL BID bottle 09/09/19 Potassium Chloride [K-Dur] 20 meq PO DAILY #30 tab 09/09/19 The following prescriptions were given: Cefadroxil [Duricef] 1,000 mg PO BID #30 cap Prescription Printed Potassium Chloride [K-Dur] 20 meq PO DAILY #30 tab Prescription Printed Furosemide [Lasix] 40 mg PO DAILY #30 tab Prescription Printed Primary Care Physician: Shawna Mooney NP-C [Primary Care Provider] - Please follow up with your Primary Care Physician in: in 1-2 weeks Test Results: Test results from this visit will be discussed in further detail at your follow- up appointment, if applicable.
[2019-09-09 13:06] VITALS: BP 130/67; PULSE 71; RESP 16; TEMP 36.8; O2SAT 93
--- NOTE | 2019-09-09 14:03 | NURSING ---
dressing changed completed to right lower extremity at this time- JESSE wraps sent with pt to protect wound when at work. Also, remaining supplies for wound care in room-sent with pt
--- NOTE | 2019-09-10 14:31 | CASEMGMT ---
PIPO DC PHONE CALL DC DATE: 09.09.2019 DC Disposition: Home Diagnosis on Discharge: Cellulitis LACE/STRATA: 07/08 Attempted to call pt. Message machine did not have name identifier. Jacquelyn PUENTESN RN ACM
--- NOTE | 2019-09-10 16:14 | DS.PCM_ITS ---
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 Work-up in the emergency room included labs which revealed a normal white blood cell count, chemistry profile was unremarkable. Patient was admitted to [facility], he was placed on IV antibiotics and seen by the wound care nurse, cultures were obtained from the patient's leg wound and grew out methicillin sensitive staph aureus and small amounts of Acinetobacter. Patient was placed on IV Lasix due to the presence of significant edema in his lower legs, patient status improved during his hospitalization. On 09/09/2019, patient was seen and examined and felt to be in stable condition for discharge home: On examination he appeared in good health and spirits. Vital signs as documented. Skin warm and dry and without overt rashes. Neck without JVD. Lungs clear. Heart exam notable for regular rhythm, normal sounds and absence of murmurs, rubs or gallops. Abdomen unremarkable and without evidence of organomegaly, morbid obesity was noted, masses, or abdominal aortic enlargement. Extremities nonedematous. Neuro: Cranial nerves II through XII are grossly intact, no focal motor deficits were noted, sensation to light touch and pinprick intact. Psych: Patient is alert and oriented x3, he does not appear anxious or depressed - Physical Exam Vitals/I&O's: Vital Signs Temp Pulse Resp BP Pulse Ox 98.2 F 71 16 130/67 H 93 09/09/19 13:06 09/09/19 13:06 09/09/19 13:06 09/09/19 13:06 09/09/19 13:06 Oxygen Flow Rate (L/min) 2 Oxygen Delivery Method Room Air Weight: 249.476 kg Body Mass Index (BMI) 72.5 Intake and Output for Last 24 Hours 09/08/19 09/09/19 09/10/19 23:59 23:59 23:59 Intake Total 2115.25 / 2115.25 1212.75 / 1212.75 Output Total 725 / 725 Balance 1390.25 / 1390.25 1212.75 / 1212.75 Microbiology Past 72 Hours 09/07/19 13:15 Wound - Leg, Right Gram Stain - Final 09/07/19 13:15 Wound - Leg, Right Wound Culture - Final Staphylococcus aureus Acinetobacter baumannii 09/06/19 17:20 Blood Culture (Wb) #2 - Right Forearm Blood Culture - Preliminary No growth in 48 hours. 09/06/19 16:51 Blood Culture (Wb) - Anticubital Left Blood Culture - Prelim inary No growth in 48 hours. Discharge Activity: Return to Normal Activity Return to work on:: 09/10/19 Weight Bearing Status: Full weight bearing Home Medications: Medications to take at Discharge Cefadroxil [Duricef] 1,000 mg PO BID #30 cap 09/09/19 Furosemide [Lasix] 40 mg PO DAILY #30 tab 09/09/19 Nystatin Powder [Mycostatin Powder] 1 applic TOPICAL BID bottle 09/09/19 Potassium Chloride [K-Dur] 20 meq PO DAILY #30 tab 09/09/19 Following Prescrptions Were Given to Patient: Cefadroxil [Duricef] 1,000 mg PO BID #30 cap Prescription Printed Potassium Chloride [K-Dur] 20 meq PO DAILY #30 tab Prescription Printed Furosemide [Lasix] 40 mg PO DAILY #30 tab Prescription Printed Primary Care Physician: Shawna Mooney NP-C [Primary Care Provider] - Please follow up with your Primary Care Physician in: in 1-2 weeks Disposition: Home Minutes spent on discharge:: 31 Patient Condition:: Stable Medical Necessity - Tobacco Use Smoking Status: Never smoker Tobacco Use: Non-smoker, Secondhand Meaningful Use Info Meaningful Use Diagnoses (Choose all that apply): None applicable Code Visit Inpatient E&M: 49915 Disch Hosp
== END 2019-09-09 14:18 | disposition home or self-care (01) | DRG 603 ==
LOC: ED 16:36 → MS3 19:35
PROVIDERS: Admitting Provider Hospitalist; Emergency Provider Emergency Medicine; Family Provider Nurse Practitioner Primary Care; PCP Nurse Practitioner Primary Care; Referring Provider Hospitalist; Visit Provider Internal Medicine
DX: L03.115 Cellulitis of right lower limb (principal); Z68.45 Body mass index [BMI] 70 or greater, adult; E66.01 Morbid (severe) obesity due to excess calories; R60.0 Localized edema; B95.61 Methicillin susceptible Staphylococcus aureus infection as the cause of diseases classified elsewhere; B96.89 Other specified bacterial agents as the cause of diseases classified elsewhere; L03.116 Cellulitis of left lower limb
CPT/HCPCS: 36415; 71045; 80048; 80053; 81001; 83605; 85025; 85610; 85730; 87040; 87070; 87077; 87186; 87205; 87640; 93970; 94760; 99285; J7030; J7040; J7050; A4216; J1940

== ENCOUNTER 2021-04-05 14:25 | Emergency (ER) | payer BC, SELFPAY ==
[2021-04-05 14:25] VITALS: BP 183/85; PULSE 109; RESP 18; TEMP 36.5; O2SAT 98; BMI 70.7
[2021-04-05 14:49] VITALS: BP 145/80; PULSE 98; RESP 16; O2SAT 97
--- NOTE | 2021-04-05 15:23 | EX.ED.DYSGE1 ---
HPI History of Present Illness Chief Complaint: Wound Informant: patient Narrative Narrative: Patient is a 36-year-old male with a past medical history of hypertension who presents to the emergency department for great toe infection. been delaying this due to the Covid pandemic. He states he does have chronic issues with this. He does typically follow with a curator of photography and prints but states he has normally gets his big toenail removed as he does get ingrown toenails. The acute issue just started over the past 2 or 3 days. Has become very red and swollen. He did bump the toe and there is some bleeding on the lateral aspect of the left toe. He feels like there is starting to become infection on the right great toe as well now. He has not had any streaking up the leg and denies any systemic symptoms. No fevers or chills or nausea/vomiting. He has not been taking anything for this. No significant painful movements. Touching the toe makes it worse. He has been able to walk on the feet without significant difficulty. PFSH PFSH Medical History Asthma Morbid obesity due to excess calories Non-smoker Home Medications cefadroxil 1,000 mg PO BID #30 cap 09/09/19 [Rx Last Taken Unknown] furosemide 40 mg PO DAILY #30 tab 09/09/19 [Rx Last Taken Unknown] nystatin 1 applic TOPICAL BID bottle 09/09/19 [Rx Last Taken Unknown] potassium chloride 20 meq PO DAILY #30 tab 09/09/19 [Rx Last Taken Unknown] cephalexin 500 mg PO Q6H 10 Days #40 cap 04/05/21 [Rx Last Taken Unknown] Allergy/AdvReac Type Severity Reaction Status Date / Time Penicillins Allergy Hives Verified 04/05/21 14:28 Social History Smoking Status: Never smoker ROS ROS ED Constitutional Constitutional ED: Denies chills or fever(s) Eyes Eyes: Denies change in vision ENT ENT ED: Denies epistaxis or rhinorrhea Cardiovascular Cardiovascular: Denies chest pain or palpitations Respiratory/Chest Respiratory/Chest: Denies cough, dyspnea or dyspnea on exertion Gastrointestinal Gastrointestinal: Denies abdominal pain, diarrhea, nausea or vomiting Musculoskeletal Musculoskeletal: Denies back pain or neck pain Integumentary Reports rash Neurologic Neurologic: Denies dizziness, headache(s) or weakness EXAM Physical Exam Const Vital Signs: 04/05/21 14:25 04/05/21 14:49 Temperature 97.7 F L Temperature Source Temporal Pulse Rate 109 H 98 Respiratory Rate 18 16 Blood Pressure 183/85 H 145/80 H Blood Pressure Mean 117 101 Pulse Ox 98 97 Oxygen Delivery Method Room Air Room Air Positive well nourished and well developed General Appearance ED: well developed and NAD HEENT Reports normocephalic, head/scalp atraumatic and moist mucous membranes Eyes PERRL and EOMs intact bilaterally Neck supple Resp normal respiratory effort and clear to auscultation bilaterally Auscultation: Negative for rales, rhonchi or wheezes Cardio regular rate, regular rhythm and no murmurs GI normal to inspection, nondistended, normoactive bowel sounds and non-tender Palpation: soft; Negative for guarding or rebound tenderness present Extremity Extremity Narrative: Left great toe is erythematous, swollen, no fluctuating abscess present. He does have full range of motion of the toe and foot. No streaking up the leg. Neurovascular intact. He is very tender to palpation. Toenail is ingrown on both sides. Right great toe has ingrown toenails but no significant signs of infection. No crepitus appreciated. Neuro no sensory deficits noted Sensorium / Orientation: alert Motor Exam: strength 5/5 throughout Psych mental status grossly normal MDM MDM MDM Narrative Medical decision making narrative: Patient presents the ED for infected ingrown toenail of the left great toe. On arrival to the ED vital signs within normal limits. He is afebrile. In no acute distress. Low concern for osteomyelitis. He has good range of motion of the toe. Will recommend oral antibiotics and urgent podiatry referral. He does have a curator of photography and prints he typically goes to I did make a referral for 1 in case he has difficulty getting in. Return precautions are reviewed with him including any difficulty moving the toe, streaking up the leg or developing systemic symptoms. He understands and is agreeable with this plan. Discharged home in stable condition. He is given a prescription for Keflex. Discharge Plan Triage Chief Complaint: Wound ED Provider: Wing Shepherd Dx/Rx/DC Orders Clinical Impression: Ingrowing toenail with infection Instructions: ED Cellulitis Prescriptions: New cephalexin 500 mg capsule 500 mg PO Q6H 10 Days Qty: 40 RF: 0 No Action nystatin 1 APPLIC bottle 1 applic topical BID RF: 0 furosemide 40 MG tablet 40 mg PO DAILY Qty: 30 RF: 0 potassium chloride 20 MEQ tablet 20 meq PO DAILY Qty: 30 RF: 0 cefadroxil 500 MG capsule 1,000 mg PO BID Qty: 30 RF: 0 Primary Care Provider: Nilesh Verma NP Referrals: Alice Dodge DPM [STAFF PHYSICIAN] - As soon as possible Podlogar,Shawna RIVAS, PRINCIPAL INVESTIGATOR-C [NON-STAFF] - Disposition Disposition: Home, Self Care
[2021-04-05 15:41] VITALS: BP 143/64; PULSE 88; RESP 16; O2SAT 97
== END 2021-04-05 15:42 | disposition home or self-care (01) ==
PROVIDERS: Emergency Provider Emergency Medicine; PCP Nurse Practitioner Family
DX: L60.0 Ingrowing nail (principal)
CPT/HCPCS: 99282